=== PATIENT | male | born 1985 | race Caucasian/White ===

== ENCOUNTER 2016-09-25 18:54 | Emergency (ER) | payer BC ==
[~2016-09-25] VITALS: Ht 175.3 cm; Wt 104.2 kg
[2016-09-25 19:51] LABS: ADD MIUA? NO; BILIRUBIN NEGATIVE; BLOOD NEGATIVE; COLOR STRAW ((YELLOW)); GLUCOSE (STRIP) NEGATIVE; KETONES NEGATIVE; LEUKOCYTES NEGATIVE; NITRITE NEGATIVE; PROTEIN (STRIP) NEGATIVE; SPECIFIC GRAVITY 1.008 (1.000-1.030); UCUL ADDED? NO; UROBILINOGEN 0.2 MG/DL (0.2-1.0)
[2016-09-25] MEDS ORDERED: INDOCIN50 MG PO (21:51)
[2016-09-25 22:19] VITALS: BP 132/88
== END 2016-09-25 22:20 | disposition home or self-care (01) ==
LOC: EME 18:54
DX: N45.1 Epididymitis (principal); M54.5 Low back pain; M79.605 Pain in left leg; R42 Dizziness and giddiness; R20.0 Anesthesia of skin
CPT/HCPCS: 76870; 81003; 99281; 99284; J0696; J7512